=== PATIENT | male | born 1995 | race Caucasian/White ===

== ENCOUNTER 2020-05-24 14:05 | Emergency (ER) | payer BC, OTHER ==
--- NOTE | 2020-05-24 16:08 | CR ---
Chest: Portable view of the chest was obtained. Comparison: No prior chest x-ray is available. Heart is enlarged. Pulmonary vessels are minimally increased. Lungs otherwise are clear. Prior sternotomy is noted. Bony structures are grossly intact. Impression: 1. Slight cardiomegaly with previous sternotomy. 2. Pulmonary vessels are minimally increased. Diagnostic code #2 This report was dictated in MDT
--- NOTE | 2020-05-24 16:14 | EDM.PDOC ---
ED HPI GENERAL MEDICAL PROBLEM - General Chief Complaint: Respiratory Problem Stated Complaint: POSSIBLE COVID UNDERLYING HEALTH PROBLEMS Time Seen by Provider: 05/24/20 14:46 Source of Information: Reports: Patient History Limitations: Reports: No Limitations - History of Present Illness INITIAL COMMENTS - FREE TEXT/NARRATIVE: Patient is a 24-year-old male who presents to the emergency department with complaints of a mildly productive cough for 4 days, body aches, generalized fatigue, chest congestion, occasional headache, and slight shortness of breath with exertion. Patient also had a fever this last Friday, however states he has not had 1 since that time. Over the weekend he also had some nausea and vomiting, however this resolved approximately 2 days ago. He denies any fever since Friday and has not had any nausea vomiting or diarrhea since 2 days ago. Denies sore throat. Patient has a history of a septal defectas an for which he takes a daily aspirin. He denies any chest pain. Patient's girlfriend was ill with similar symptoms last week. She was not tested for the coronavirus. He has had no known contact with someone who was sick with coronavirus. - Related Data Allergies Allergy/AdvReac Type Severity Reaction Status Date / Time No Known Allergies Allergy Verified 05/24/20 14:43 Home Meds: Home Meds Aspirin [Aspirin EC] 81 mg PO DAILY 05/24/20 [History] Metoprolol Succinate 25 mg PO DAILY 05/24/20 [History] Past Medical History Cardiovascular History: Reports: Congenital Septal Defect, Stents Musculoskeletal History: Reports: Fracture Other Musculoskeletal History: Right Ankle Psychiatric History: Reports: Addiction, Depression - Past Surgical History Cardiovascular Surgical History: Reports: Pacer Social & Family History - Family History Family Medical History: Noncontributory - Caffeine Use Caffeine Use: Reports: Coffee, Energy Drinks, Soda, Tea - Recreational Drug Use Recreational Drug Use: Yes Drug Use in Last 12 Months: Yes Recreational Drug Type: Reports: Marijuana/Hashish, Other (see below) Other Recreational Drug Type: kratum Recreational Drug Use Frequency: Rarely ED ROS GENERAL - Review of Systems Review Of Systems: See Below Constitutional: Reports: Fever, Fatigue. Denies: Chills, Weakness HEENT: Reports: No Symptoms. Denies: Rhinitis, Throat Pain, Vision Change Respiratory: Reports: Shortness of Breath, Cough. Denies: Wheezing, Sputum Cardiovascular: Reports: No Symptoms. Denies: Chest Pain Endocrine: Reports: No Symptoms GI/Abdominal: Reports: No Symptoms. Denies: Abdominal Pain, Diarrhea, Nausea, Vomiting : Reports: No Symptoms Musculoskeletal: Reports: No Symptoms Skin: Reports: No Symptoms Neurological: Reports: Headache Psychiatric: Reports: No Symptoms Hematologic/Lymphatic: Reports: No Symptoms Immunologic: Reports: No Symptoms ED EXAM, GENERAL - Physical Exam Exam: See Below Exam Limited By: No Limitations General Appearance: Alert, WD/WN, No Apparent Distress Respiratory/Chest: No Respiratory Distress, Lungs Clear, Normal Breath Sounds, No Accessory Muscle Use, Chest Non-Tender Cardiovascular: Normal Peripheral Pulses, Regular Rate, Rhythm, No Edema, No Gallop, No JVD, No Murmur, No Rub Neurological: Alert, Oriented, CN II-XII Intact, Normal Cognition, Normal Gait, Normal Reflexes, No Motor/Sensory Deficits Psychiatric: Normal Affect, Normal Mood Skin Exam: Warm, Dry, Intact, Normal Color, No Rash Course - Vital Signs Last Recorded V/S: Last Vital Signs Temp 97.2 F 05/24/20 14:33 Pulse 67 05/24/20 14:33 Resp 18 05/24/20 14:33 BP 107/96 H 05/24/20 14:33 Pulse Ox 94 L 05/24/20 14:33 - Orders/Labs/Meds Orders: Active Orders 24 hr Category Date Time Status CBC WITH AUTO DIFF [HEME] Stat Lab 05/24/20 15:15 Results CORONAVIRUS COVID-19 PCR PHL Routine Lab 05/24/20 14:57 Ordered Labs: Laboratory Tests 05/24/20 05/24/20 Range/Units 15:15 15:15 WBC 2.32 L* (4.23-9.07) K/mm3 RBC 4.60 L (4.63-6.08) M/mm3 Hgb 14.8 D (13.7-17.5) gm/dl Hct 45.2 (40.1-51.0) % MCV 98.3 H (79.0-92.2) fl MCH 32.2 (25.7-32.2) pg MCHC 32.7 (32.2-35.5) g/dl RDW Std Deviation 44.6 H (35.1-43.9) fL Plt Count 135 L (163-337) K/mm3 MPV 9.8 (9.4-12.3) fl Neut % (Auto) 57.9 (34.0-67.9) % Lymph % (Auto) 25.4 (21.8-53.1) % Mcduffie % (Auto) 10.3 (5.3-12.2) % Eos % (Auto) 6.0 (0.8-7.0) Baso % (Auto) 0.4 (0.1-1.2) % Neut # (Auto) 1.34 L (1.78-5.38) K/mm3 Lymph # (Auto) 0.59 L (1.32-3.57) K/mm3 [place]ffie # (Auto) 0.24 L (0.30-0.82) K/mm3 Eos # (Auto) 0.14 (0.04-0.54) K/mm3 Baso # (Auto) 0.01 (0.01-0.08) K/mm3 Sodium 142 (136-145) mEq/L Potassium 4.1 (3.5-5.1) mEq/L Chloride 106 (98-107) mEq/L Carbon Dioxide 27 (21-32) mEq/L Anion Gap 13.1 (5-15) BUN 12 (7-18) mg/dL Creatinine 0.8 (0.7-1.3) mg/dL Est Cr Clr Drug Dosing 144.48 mL/min Estimated GFR (MDRD) > 60 (>60) mL/min BUN/Creatinine Ratio 15.0 (14-18) Glucose 88 (74-106) mg/dL Calcium 8.5 (8.5-10.1) mg/dL Total Bilirubin 0.5 (0.2-1.0) mg/dL AST 21 (15-37) U/L ALT 46 (16-63) U/L Alkaline Phosphatase 109 (46-116) U/L C-Reactive Protein 0.4 (<1.0) mg/dL Total Protein 7.9 (6.4-8.2) g/dl Albumin 3.9 (3.4-5.0) g/dl Globulin 4.0 gm/dL Albumin/Globulin Ratio 1.0 (1-2) - Re-Assessments/Exams Free Text/Narrative Re-Assessment/Exam: Patient is concerned that he could have coronavirus. I have ordered CBC, CMP, CRP, coronavirus test, and chest x-ray. 05/24/20 16:14 Chest x-ray was negative for any acute abnormalities. WBC was low at 2.4. Both lymphocytes and neutrophils were low. CMP was found to be normal. CRP was also normal. Patient has maintain oxygen saturation from 94 to 97% throughout his stay in the ER. Exam was found to be normal. Lung sounds are clear. He is in no respiratory distress. Discussed that we will test him for coronavirus. The results of this test normally take 24 to 48 hours and he will be notified of the results at that time. If he should experience any worsening symptoms, he should return to ER. Also recommended that he follow-up in the clinic next week to have his blood work rechecked and ensure that his WBCs do not remain low. Discharge instructions as documented. Departure - Departure Time of Disposition: 16:20 Disposition: Home, Self-Care 01 Condition: Good Clinical Impression: Viral respiratory illness - Discharge Information *PRESCRIPTION DRUG MONITORING PROGRAM REVIEWED*: No *COPY OF PRESCRIPTION DRUG MONITORING REPORT IN PATIENT GINNY: No Instructions: Viral Respiratory Infection, [id number] Referrals: PCP,Not In Area [Primary Care Provider] - Additional Instructions: Your seen in the emergency department today for cough, shortness of breath, generalized body aches, fatigue, and fever, nausea, and vomiting this weekend. He work-up included blood work, chest x-ray, and a coronavirus test. As we discussed, your WBCs were found to be low at 2.4. Your blood work was otherwise normal. Your inflammatory markers were normal. Chest x-ray did not show any signs of a viral or bacterial pneumonia. The results of your coronavirus test take 24 to 48 hours to complete. You will be notified when these are available. Recommend that you go home and rest, ensure adequate fluid intake, and self isolate. I would recommend that you follow-up in the clinic sometime next week to have your blood levels rechecked to ensure that your WBCs do not remain low. If your symptoms should worsen, please do not hesitate to return to the ER. Sepsis Event Note (ED) - Evaluation Sepsis Screening Result: No Definite Risk - Focused Exam Vital Signs: Vital Signs Temp Pulse Resp BP Pulse Ox 05/24/20 14:33 97.2 F 67 18 107/96 H 94 L - My Orders Last 24 Hours: My Active Orders 05/24/20 14:57 CORONAVIRUS COVID-19 PCR PHL Routine 05/24/20 15:15 CBC WITH AUTO DIFF [HEME] Stat - Assessment/Plan Last 24 Hours: My Active Orders 05/24/20 14:57 CORONAVIRUS COVID-19 PCR PHL Routine 05/24/20 15:15 CBC WITH AUTO DIFF [HEME] Stat
[2020-05-24 17:23] VITALS: BP 107/75; PULSE 61
== END 2020-05-24 16:45 | disposition home or self-care (01) ==
LOC: JD.ED 14:05
DX: U07.1 COVID-19 (principal); J98.8 Other specified respiratory disorders; Z79.82 Long term (current) use of aspirin; Z79.899 Other long term (current) drug therapy
CPT/HCPCS: 36415; 71045; 71045-26; 80053; 85025; 86140; 99282; 99285-25; U0002